=== PATIENT | female | born 1980 | race Caucasian/White ===

== ENCOUNTER → 2018-04-16 09:00 | Outpatient (CLI) | payer SELFPAY ==
--- NOTE | 2018-04-16 09:00 | DT_ITS ---
This patient was seen during an EMR downtime April 14, 2018 - April 21, 2018. This patient may have a combination of paper and electronic documentation or all paper documentation. All documentation is viewable within the e-chart portion of [facility] for each patient visit.
[2018-04-21 13:24] LABS: Free T3 2.1 pg/mL (2.18-3.98); T4 Free Direct 1.45 ng/dL (0.76-1.46)
== END ==
PROVIDERS: Family Provider Family Medicine; PCP Family Medicine; Visit Provider Nurse Practitioner
DX: E03.9 Hypothyroidism, unspecified (principal)
CPT/HCPCS: 36415; 84439; 84443; 84481